=== PATIENT | male | born 1955 | race Caucasian/White ===

== ENCOUNTER 2016-10-23 08:34 | Inpatient (IN) | payer OTHER ==
[~2016-10-23] VITALS: Ht 182.9 cm; Wt 130.6 kg
[~2016-10-23 08:34] MED LIST: B COMPLETE1 EACH PO; BETA CAROT25000 UNIT PO; BYDUREON P2 MG/0.65 SC; CENTRUM SILVER1 EAC3 PO; INVOKANA300 MG PO; LYRICA50 MG PO; NORVASC2.5 MG PO; PHENTERMINE H37.5 MG PO; RAMIPRIL1.25 MG PO; RESTORIL15 MG PO; VITAMIN B12 IM; VITAMIN C1000 MG PO; VITAMIN D2000 UNIT PO
[2017-03-14] MEDS ORDERED: ALTACE5 MG PO (10:09)
[2017-03-14] MEDS ORDERED: TRESIBA FL100 UNIT/1 SC (10:10)
[2017-03-14] MEDS ORDERED: BYDUREON P2 MG/0.65 SC (10:10)
[2017-03-14] MEDS ORDERED: METFORMIN HCL1000 M3 PO (10:11)
[2017-03-14] MEDS ORDERED: WELLBUTRIN75 MG PO (10:13)
[2017-03-15] MEDS ORDERED: INVOKANA300 MG PO (13:48)
[2017-03-15] MEDS ORDERED: FEOSOL325 MG PO (13:52)
[2017-03-18 08:02] LABS: POINT-OF-CARE METER ID UU14174212
[2017-03-18 08:12] VITALS: BP 151/75
[2017-03-18 12:39] LABS: POINT-OF-CARE METER ID UU13113675
[2017-03-18 14:16] VITALS: BP 122/77
[2017-03-18 16:48] VITALS: BP 144/75
[2017-03-18 18:39] VITALS: BP 144/75
[2017-03-18 19:34] VITALS: BP 168/78
[2017-03-18 21:49] LABS: POINT-OF-CARE METER ID UU14188577
[2017-03-18 23:24] VITALS: BP 167/95
[2017-03-19 04:17] VITALS: BP 159/86
[2017-03-19 05:46] LABS: ANION GAP 6 MEQ/L (2-14); CHLORIDE 103 MEQ/L (99-109); GFR ESTIMATE (CALCULATED) > 59 mL/min/; GLUCOSE 155 mg/dL (70-99); POTASSIUM 4.4 MEQ/L (3.7-5.4); SAMPLE HEMOLYSIS CHECK 0; SAMPLE ICTERIC CHECK 0; SAMPLE LIPEMIA CHECK 0; SODIUM 137 MEQ/L (136-147); UREA NITROGEN (BUN) 24 mg/dL (9-23)
[2017-03-19 06:19] LABS: POINT-OF-CARE METER ID UU14188577
[2017-03-19 08:28] VITALS: BP 178/97
[2017-03-19 12:03] VITALS: BP 138/82
[2017-03-19 16:49] VITALS: BP 133/79
[2017-03-19 23:31] VITALS: BP 173/88
[2017-03-20 06:47] LABS: POINT-OF-CARE METER ID UU14188577
[2017-03-20 07:51] VITALS: BP 164/89
[2017-03-20 08:11] LABS: POINT-OF-CARE METER ID UU14188577
[2017-03-20] MEDS ORDERED: SENNA PLUS TAB1 EACH PO (08:40)
[2017-03-20] MEDS ORDERED: TYLENOL REGULA325 MG PO (08:40)
[2017-03-20] MEDS ORDERED: XARELTO10 MG PO (08:41)
[2017-03-20] MEDS ORDERED: OXYCODONE HCL5 MG PO (08:41)
[2017-03-20 12:22] LABS: POINT-OF-CARE METER ID UU14188577
== END 2017-03-20 15:28 | disposition home health service (06) | DRG 470 ==
LOC: 2SOUTH 08:34 → 3EAST 03-18 06:50 → 2SOUTH 03-18 06:50 → 3EAST 03-18 14:16 → 2SOUTH 03-18 15:32 → 3EAST 03-20 15:28
PROVIDERS: Orthopaedic Surgery
PROC: 0SRC0J9 Replacement of Right Knee Joint with Synthetic Substitute, Cemented, Open Approach (ICD-10-PCS; principal; 2017-03-18)
DX: M17.11 Unilateral primary osteoarthritis, right knee (principal); E11.9 Type 2 diabetes mellitus without complications; E66.9 Obesity, unspecified; Z79.4 Long term (current) use of insulin; Z88.0 Allergy status to penicillin; Z68.37 Body mass index [BMI] 37.0-37.9, adult; Z83.3 Family history of diabetes mellitus
CPT/HCPCS: 80048; 82948; C1713; J1200; J1815; J1885; J2250; J2405; J7050; J7120; L1820; S0020

== ENCOUNTER → 2017-09-30 | Outpatient (CLI) | payer OTHER ==
[~2017-09-30] MED LIST changes: +ALTACE5 MG PO; +FEOSOL325 MG PO; +METFORMIN HCL1000 M3 PO; +OXYCODONE HCL5 MG PO; +SENNA PLUS TAB1 EACH PO; +TRESIBA FL100 UNIT/1 SC; +TYLENOL REGULA325 MG PO; +WELLBUTRIN75 MG PO; +XARELTO10 MG PO
== END | disposition home or self-care (01) ==
LOC: NUC 09:41
DX: M17.0 Bilateral primary osteoarthritis of knee (principal); M19.022 Primary osteoarthritis, left elbow; M19.032 Primary osteoarthritis, left wrist; M25.461 Effusion, right knee; Z96.651 Presence of right artificial knee joint
CPT/HCPCS: 78315; A9503

== ENCOUNTER 2017-10-23 13:10 | Day surgery (SDC) | payer OTHER ==
[~2017-10-23] VITALS: Ht 188 cm; Wt 129.7 kg
[~2017-10-23 13:10] MED LIST changes: +BUPROPION HCL150 M2 PO; +FARXIGA10 MG PO; +LASIX40 MG PO; +WELLBUTRIN SR150 MG PO
[2017-10-23 13:48] LABS: POINT-OF-CARE METER ID UU14174212
[2017-10-23 14:02] VITALS: BP 146/86
[2017-10-23 16:49] LABS: POINT-OF-CARE METER ID UU13113675
[2017-10-23 17:29] VITALS: BP 145/88
== END 2017-10-23 18:08 | disposition home or self-care (01) ==
LOC: SDC 13:10
PROVIDERS: Orthopaedic Surgery Hand Surgery
DX: G56.01 Carpal tunnel syndrome, right upper limb (principal); M72.0 Palmar fascial fibromatosis [Dupuytren]; G89.29 Other chronic pain; E11.9 Type 2 diabetes mellitus without complications; Z79.84 Long term (current) use of oral hypoglycemic drugs; E66.9 Obesity, unspecified; Z85.89 Personal history of malignant neoplasm of other organs and systems; Z96.651 Presence of right artificial knee joint; Z98.1 Arthrodesis status; Z83.3 Family history of diabetes mellitus; Z68.36 Body mass index [BMI] 36.0-36.9, adult; Z88.0 Allergy status to penicillin
CPT/HCPCS: 82948; J0690; J2250; J3010; S0020